=== PATIENT | female | born 1960 | race Caucasian/White ===

== ENCOUNTER 2025-01-21 12:51 | Inpatient (IN) | payer MEDICAID, OTHER ==
[~2025-01-21] VITALS: Ht 154.9 cm; Wt 76.4 kg
[~2025-01-21 12:51] MED LIST: CYCL-1 PO
--- NOTE | 2025-01-21 13:06 | ELECTROCARDIOGRAPH REPORT ---
[facility] Test Date: 2025-01-21 Test Time: 12:57:00 Pat Name: NORA HERNANDEZ Department: EMERGENCY ROOM Room: Gender: F Educational Therapy Teacher: ANTONINA : 1960 Requested By: ELLI DECKER Order Number: [id number] Reading MD: Measurements Intervals Hubbard Rate: 79 P: 44 KS: 144 QRS: 23 QRSD: 129 T: 85 QT: 398 QTc: 457 Interpretive Statements Sinus rhythm Left bundle branch block Please click the below link to view image of tracing.
--- NOTE | 2025-01-21 13:14 | Physician Documentation ---
History of Present Illness ~ Chief Complaint: Chest Pain Stated Complaint: CP SOB Time Seen by MD: 13:47 OK to notify your PCP?: No Source: patient, RN notes reviewed Mode of Arrival: POV Exam Limitations: no limitations HPI This is a 64-year-old female who presents to the emergency department reporting that she had onset of chest pain this morning, worse with breathing. She notes that this has happened before, but this is more severe than usual, and it usually goes away after a brief period of time, this has sustained. She denies nausea, vomiting, shortness of breath. She denies chills, fever, recent flu- like illness. 1415: Patient reports prior instances of pain were at least 15 years ago. At the time states pain went away on its own. Today pain is not resolving on its own and increases with deep breaths and inspiration. She denies history of cardiac workup such as stress test. She denies significant past medical history, but does not have a regular doctor. She does not smoke cigarettes. She denies known family history of cardiac disease. Medication Reconciliation Allergies: Coded Allergies: No Known Allergies (Unverified , 10/30/14) Scheduled Losartan Potassium (Losartan Potassium), 1 TAB PO DAILY Pantoprazole Sodium (Pantoprazole Sodium), 40 MG PO DAILY Miscellaneous Medications Home Med List (No Home Medications), (Reported) Discontinued Medications Amoxicillin (Amoxicillin), 2 CAP PO BID, (Reported) Cyclobenzaprine* (Cyclobenzaprine*), 1 TABLET PO Q8H PRN for muscle spasms Discontinued Reason: patient no longer taking Past Medical History Past Medical History: Chronic Back Pain Past Surgical History: hysterectomy Alcohol Use: Rarely Drug Use: none Lives with: Family Lives In: Home Occupation: employed Review of Systems All Other Systems at this time: Reviewed and Negative ROS As stated above in the HPI, otherwise all systems are reviewed and negative. Physical Exam Vital Signs: RN Vital Signs have been reviewed: Yes, Temperature: 98.1, Source: Temporal, Heart Rate: 78, Respiratory Rate: 15, BP: 144/94, Pulse Oximetry: 97, Weight: 76.360 Pulse Oximetry Reflects: adequate oxygenation Physical Exam General: Alert, no apparent distress. HEENT: PERRL, EOMI, no injection, moist mucous membranes. Neck: Full range of motion. Respiratory: Lungs clear, no respiratory distress. Chest: No accessory muscle use. Cardiovascular: Regular rate and rhythm, no murmurs. Gastrointestinal: Soft, nontender, nondistended. Bowels sounds present. Extremities: Normal range of motion, no deformity. Neurologic: Oriented x4. Psychiatric: Normal mood and affect. Skin: Normal color, warm and dry. No edema, no ecchymosis. Progress Progress Note 1347: Care assumed by Dr. Singleton, following MSE by CLAUDIA Killian. 1502: Hospitalist paged. 1510: Case discussed with CLAUDIA Weller, hospitalist, who agrees to evaluate for admission. Results/Orders Reviewed/noted all lab results: Yes Results/Orders Orders - ELLI SINGLETON MD Page Hospitalist (01/21/25 15:01) Fill Out Med Reconciliation (01/21/25 15:01) Completed Orders - ELLI SINGLETON MD Electrocardiogram (01/21/25 ) Aspirin 81mg Chew Tablet (Aspirin 81mg C (01/21/25 14:15) Vital Signs 01/21/25 01/21/25 01/21/25 13:08 13:44 13:55 Temp 98.1 Pulse 78 74 Resp 15 12 B/P (MAP) 144/94 154/91 (112) Pulse Ox 97 98 Laboratory Tests Test 01/21/25 13:04 White Blood Count 7.1 Red Blood Count 5.11 Hemoglobin 15.5 Hematocrit 45.5 H Mean Corpuscular Volume 89.1 Mean Corpuscular Hemoglobin 30.3 Mean Corpuscular Hemoglobin Concent 34.0 Red Cell Distribution Width 13.8 Platelet Count 286 Mean Platelet Volume 7.4 Neutrophils (%) (Auto) 55.2 Lymphocytes (%) (Auto) 34.2 Monocytes (%) (Auto) 8.5 Eosinophils (%) (Auto) 1.1 Basophils (%) (Auto) 1.0 Neutrophils # (Auto) 3.9 Lymphocytes # (Auto) 2.4 Monocytes # (Auto) 0.6 Eosinophils # (Auto) 0.1 Basophils # (Auto) 0.1 CBC Comment Sodium Level 140 Potassium Level 4.1 Chloride Level 105 Carbon Dioxide Level 25.6 Anion Gap 9 Blood Urea Nitrogen 21 H Creatinine 0.74 Estimated GFR/1.73 m2 80 BUN/Creatinine Ratio 28.4 H Glucose Level 94 Calcium Level 9.3 Troponin I High Sensitivity 5 Pro-B-Type Natriuretic Peptide 50 Albumin 4.0 Chemistry Comments EKG/XRAY/CT/US/VASC/MRI EKG : Additional Comment 1257: EKD interpreted by myself to show NSR at a rate of 79bpm. LBBB, No STEMI. normal axis. Chest X-Ray : Additional Comments CHEST RADIOGRAPH Indication: CP Technique: Single frontal view of the chest was obtained Comparison: None FINDINGS: Lines and Tubes: None Lungs: No focal consolidation. Hip pain is noted overlying the right upper lung zone which is most likely external to the patient. Pleura: No effusion. No pneumothorax. Cardiomediastinal contours: Unremarkable Bones: No acute osseous abnormality. Calcific tendinitis adjacent to the right humeral head. IMPRESSION: No acute cardiopulmonary disease. Reviewed by myself. (Dr. Singleton) Heart Score: Heart Score Response (Comments) Value History Highly Suspicious 2 EKG Repolarization Disturb 1 Age 45-64 1 Risk Factors No known risk factors 0 Troponin Normal limit 0 Total 4 Medical Decision Making Additional info obtained from: old records (last seen in 2014 for flank pain) Findings 64-year-old female with an episode of chest pain, the patient has not had any recent cardiac evaluations, given the fact that she is chest pain she has been recommended for further evaluation and admission to the hospital. I did review her chest x-ray and interpreted as a normal chest x-ray with normal-appearing lung stewart normal cardiac silhouette and normal bony structures. I have also reviewed her EKG has well and her electronic device monitor was a sinus rhythm. The patient's troponins are negative the patient is currently chest pain-free. The patient will be admitted to the hospitalist service case has been discussed with the hospitalist. Prior hospitalizations were reviewed. The patient's pulse oximetry was interpreted as normal and adequate. Departure Time of Disposition: 15:02 Disposition: 09 ADMITTED INPATIENT Admitted to Inpatient Unit: yes, to hospitalist Impression: Primary Impression: Chest pain Qualified Codes: R07.9 - Chest pain, unspecified Condition: Fair Prescriptions Pantoprazole Sodium (Pantoprazole Sodium) 40 Mg Tablet. 40 MG PO DAILY for 30 Days, #30 TAB.SR Prov: AMANDA WELLER INFORMATION SCIENTIST 01/22/25 Losartan Potassium (Losartan Potassium) 25 Mg Tablet 1 TAB PO DAILY for 30 Days, #30 TAB 0 Refills Prov: AMANDA WELLER INFORMATION SCIENTIST 01/22/25 Education Educated: Patient Educated regarding: diagnosis, treatment, need for follow up Signature Scribe Signature: Scribed for Elli Singleton MD by Adalberto Leo . 01/21/25 14:14 Attestation: The note accurately reflects work and decisions made by me.Elli Singleton MD 01/23/25 03:33 SAYDA KILLIAN NP Jan 21, 2025 13:14 ADALBERTO MCGRATH Jan 21, 2025 14:18 ELLI SINGLETON MD Jan 23, 2025 03:33
[2025-01-21 13:27] LABS: MEAN PLATELET VOLUME 7.4 FL (7.4-10.4); RED CELL DISTRIBUTION WIDTH 13.8 % (11.5-14.5)
[2025-01-21 13:46] LABS: CREATININE 0.74 MG/DL (0.40-0.90); PRO BRAIN NATRIURETIC PEPTIDE 50 PG/ML (0-125); TOTAL CARBON DIOXIDE 25.6 MMOL/L (24-32); eCRCL 59 ML/MIN; eGFR 80 ML/MIN
--- NOTE | 2025-01-21 14:04 | RADIOLOGY REPORT ---
CHEST RADIOGRAPH Indication: CP Technique: Single frontal view of the chest was obtained Comparison: None FINDINGS: Lines and Tubes: None Lungs: No focal consolidation. Hip pain is noted overlying the right upper lung zone which is most likely external to the patient. Pleura: No effusion. No pneumothorax. Cardiomediastinal contours: Unremarkable Bones: No acute osseous abnormality. Calcific tendinitis adjacent to the right humeral head. IMPRESSION: No acute cardiopulmonary disease.
[2025-01-21] MEDS ORDERED: HYDROcodone/acetaminophen 10/325mg tab PO PRN (15:20)
[2025-01-21] MEDS ORDERED: magnesium hydroxide 30ml (MOM) UD suspension PO PRN (15:20)
[2025-01-21] MEDS ORDERED: morphine 4 MG/ML inj SYRINge IV PRN ×2 (15:20)
[2025-01-21] MEDS ORDERED: potassium Cl 40MEQ/1/2NS 520ml 520 ML IV PRN (15:20)
[2025-01-21] MEDS ORDERED: magnesium sulf-water 2g/50mL 50 ML IV PRN (15:20)
[2025-01-21] MEDS ORDERED: HYDROcodone/acetaminophen 5mg/325mg tablet PO PRN (15:20)
[2025-01-21] MEDS ORDERED: mag hydrox/Alum hydrox/simeth 30ml oral suspension PO PRN (15:20)
[2025-01-21] MEDS ORDERED: ondansetron 4mg rapidly disintigrating tab PO PRN (15:20)
[2025-01-21] MEDS ORDERED: hydrALAZINE 20mg/ml inj. IV PRN (15:20)
[2025-01-21] MEDS ORDERED: ondansetron/PF 4mg/2ml inj IV PRN (15:20)
[2025-01-21] MEDS ORDERED: potassium Cl 20 mEq SR tablet PO PRN ×2 (15:20)
[2025-01-21] MEDS ORDERED: magnesium sulf-water 4G/100mL 100 ML IV PRN (15:20)
--- NOTE | 2025-01-21 15:42 | HISTORY AND PHYSICAL ---
History & Physical Providers to CC ~ History of Present Illness Reason for Admit\Complaint: r/o ACS History of Present Illness Yaneth Vidal is a 64-year-old female with no reported significant past medical history who came to the ED with chief complaints of acute onset nonradiating chest pain that worsens with breathing and exertion x 1 day. Patient reports experiencing similar symptoms 15 years ago which spontaneously resolved. Patient denies prior GERD, anxiety disorder, [place]/CAD, CVA, cardiac arrhythmia, DVT/PE, or GIB. Patient denies palpitations, shortness of breath, abdominal pain, n/v/d, dysuria, chills, fever, sweating, or recent illness. Patient is to be admitted for further workups and treatment. Allergies: Coded Allergies: No Known Allergies (Unverified , 10/30/14) Home Medications Home Medications Active Cyclobenzaprine* (Cyclobenzaprine HCl) 10 Mg Tablet 1 Tablet PO Q8H PRN Past Medical History Past Medical History Denies Past Surgical History Surgical History Comment Hysterectomy Left total hip replacement Past Social History Social History Comment Alcohol: Denies Tobacco: Denies, never Illicit drug use: Denies Living situation: Lives at home with family ROS ROS Other than positives in HPI, all 14 review of systems are negative Exam Vitals: Vital Signs Date Time Temp Pulse Resp B/P (MAP) Pulse Ox O2 Delivery O2 Flow Rate FiO2 01/21/25 13:55 74 12 154/91 (112) 98 01/21/25 13:08 98.1 General: A&Ox 3, NAD HEENT: Normocephalic, PERRLA Neck: Supple, trachea midline, no JVD Chest: Clear to auscultation bilaterally Cardiovascular: RRR, S1&S2 Abdomen: Soft and nontender Extremities: No cyanosis/clubbing/or edema Central Nervous System: CN II-XII intact, no focal deficits Musculoskeletal: No paraspinal muscle tenderness, no muscle spasm Skin: Warm and intact Diagnostic Data Last Recorded Lab Results: 01/21/25 1304 01/21/25 1304 Additional Plan Assessment & Plan ACS- to rule out -trop series neg, CXR neg, EKG sinus at 79bpm, no ST elevation/depression, LBBB, TTE overall systolic function with LVEF of 65% RVSP 31mmHg, no significant VHD -aspirin, statin, prn nitroglycerin, PPI, HEART score 4, follow Lexiscan, A1c, lipid panel DVT/VTE Prophylaxis: heparin Code Status: Full Code I spent a total of 35 minutes discussing Advanced Care Planning measures with the patient. Advance care planning: Discussed with patient the importance of advance care planning in case of emergent situation. We discussed various resuscitative measures/ ACP with the patient at the time of admission. Patient voiced understanding and patient has decided on a full code status. Date of Service: Jan 21, 2025 Billing Provider: AMANDA GRAF Common Visit Codes: 55544-KBCTGTU INP/OBS CARE (HIGH) Secondary Visit Codes: 70022-HKGQVNGW CARE PLAN 30 MINUTES AMANDA GRAF Jan 21, 2025 15:42
[2025-01-21] MEDS ORDERED: aminophylline 250mg/10ml inj. IV PRN (15:50)
[2025-01-21] MEDS ORDERED: metoprolol tartrate 1mg/ml inj IV PRN (15:50)
[2025-01-21] MEDS: pantoprazole 40mg Tablet.DR PO ONE (16:33)
[2025-01-21] MEDS: normal saline 1000ml 1,000 ML IV SCH (17:28)
--- NOTE | 2025-01-21 18:17 | CARDIOLOGY REPORT ---
APPROVED REPORT EXAM: Comprehensive 2D, Doppler, and color-flow Echocardiogram. Patient Location: ER RM 9 Blood Pressure: 154/91 mmHg Heart Rate: 68 bpm Indications Chest Pain Shortness of Breath NO [employer] NO Previous ECHO 2D Dimensions LA Diam 2.4 cm IVSd 1.0 (0.7-1.1cm) LVDd 3.9 cm PWd 0.8 (0.7-1.1cm) IVSs 1.0 (0.8-1.2cm) LVDs 2.6 (2.5-4.0cm) PWs 1.4 (0.8-1.2cm) LVOT Diameter 1.86 (1.8-2.4cm) LVEF(%) 62.2 (>50%) Ao Asc Diam. 3.17 cm IVC 16.03 mm FS (%) 33.0 % SV 40.2 ml CO 2.4 L/min M-Mode Dimensions Left Atrium(MM) 2.60 (2.5-4.0cm) Aortic Root 2.53 (2.2-3.7cm) Aortic Cusp Exc 1.90 (1.5-2.0cm) MV EPSS 0.5 (<0.5cm) Aortic Valve AoV Peak Eran. 111.0 cm/s AoV VTI 21.5 cm AO Peak GR. 4.9 mmHg AO Mean GR. 3 mmHg LVOT VTI 16.21 cm LVOT Peak Eran. 75.2 cm/s JASON(VTI)/BSA 2.04 cm2/m2 JASON (VTI) 2.04 cm2 Mitral Valve MV E Velocity 65.3 cm/s MV Peak Gr. 2 mmHg MV DECEL TIME 240 ms MV A Velocity 81.2 cm/s MV PHT 88 ms E/A Ratio 0.8 MVA (PHT) 2.50 cm2 MV VMax 76.6 cm/s TDI Lateral E' P. V 9.59 cm/s Medial E' P. V 8.00 cm/s E/Lateral E' 6.8 E/Medial E' 8.2 Pulmonary Valve PAEDP 12.12 mmHg Tricuspid Valve TR P. Velocity 231 cm/s RAP ESTIMATE 10 mmHg TR Peak Gr. 21 mmHg RVSP 31 mmHg LEFT VENTRICLE Normal LV size and wall thickness. Overall systolic function is normal. LVEF is 65%. RIGHT VENTRICLE Right ventricle is mildly dilated with normal contractility. Elevated right heart pressures with an RVSP of 31 mmHg. ATRIA The left atrium size is normal. AORTIC VALVE Trileaflet AV appears mildly sclerotic without stenosis. No insufficiency. MITRAL VALVE Mitral valve leaflets are mildly thickened with mild annular calcification. No stenosis. Trace regurgitation. TRICUSPID VALVE The tricuspid valve is normal in structure with mild regurgitation. PULMONIC VALVE Pulmonic valve is grossly normal in structure with physiologic insufficiency. GREAT VESSELS The aortic root is normal in size. The ascending aorta is normal in size. The IVC is normal in size and collapses >50% with inspiration. PERICARDIUM Normal pericardium. No effusion. Other Information Study Quality: Adequate Conclusion Normal LV size and wall thickness. Overall systolic function is normal. LVEF is 65%. Right ventricle is mildly dilated with normal contractility. Elevated right heart pressures with an RVSP of 31 mmHg. The left atrium size is normal. Trileaflet AV appears mildly sclerotic without stenosis. No insufficiency. Mitral valve leaflets are mildly thickened with mild annular calcification. No stenosis. Trace regurgitation. The tricuspid valve is normal in structure with mild regurgitation. Normal pericardium. No effusion.
[2025-01-21] MEDS ORDERED: NO HOME MEDS (18:27)
[2025-01-21] MEDS: K and/or MAG REPLACEMENT MC SCH (19:54)
[2025-01-21] MEDS: docusate sod 100mg capsule PO SCH (20:00)
[2025-01-21] MEDS: heparin, porcine 5000 units/ml vial SQ SCH (20:00)
[2025-01-21 22:15] VITALS: BP 143/86; PULSE 71; RESP 10; O2SAT 98
[2025-01-22] VITALS (14 sets, daily range): BP systolic 121–155; BP diastolic 61–89; PULSE 62–113; RESP 14–19; TEMP 97.1–97.9; O2SAT 96–100
[2025-01-22 06:03] LABS: MEAN PLATELET VOLUME 7.6 FL (7.4-10.4); RED CELL DISTRIBUTION WIDTH 13.5 % (11.5-14.5)
[2025-01-22 06:19] LABS: CREATININE 0.66 MG/DL (0.40-0.90); TOTAL CARBON DIOXIDE 24.3 MMOL/L (24-32); eCRCL 67 ML/MIN; eGFR > 90 ML/MIN
[2025-01-22] MEDS: pantoprazole 40mg Tablet.DR PO SCH (07:22)
[2025-01-22 07:32] LABS: CHOL/HDL RATIO 4.1 (0.00-4.99); LDL CHOLESTEROL 114 MG/DL (50-100)
[2025-01-22] MEDS: regadenoson 0.4mg/5ml syringe IV PRN (09:54)
[2025-01-22] MEDS ORDERED: AMOX500C4 PO (13:15)
--- NOTE | 2025-01-22 14:12 | RADIOLOGY REPORT ---
Reason for study/Clinical History: angina, HEART4 Comparison Study: None Myocardial Perfusion Study with SPECT Technique: The patient received an intravenous injection of 9.3 mCi of technetium-99m Sestamibi while at rest. After a short delay, SPECT tomographic images of the heart were obtained. The patient then went to the stress lab where they received an intravenous Lexiscan utilizing standard protocol. 32.4 mCi of technetium-99m Sestamibi was injected intravenously immediately after the start of the infusion. Gated SPECT tomographic images of the heart were acquired and processed. Findings: Rotating planar images show no significant attenuation artifact. The left ventricular size is within normal limits. Stress tomographic images demonstrate normal perfusion. Resting tomographic images demonstrate a similar pattern. Gated portion of the study shows normal wall motion and myocardial thickening. The left ventricular ejection fraction is 69 %. (normal greater than 50%) Impression: Normal left ventricular size, wall motion, and function, without evidence of infarction or of myocardium at ischemic risk. The left ventricular ejection fraction is 69 %.
[2025-01-22] MEDS ORDERED: LOSA25TA41 PO (15:35)
[2025-01-22] MEDS ORDERED: PANT40TA54 PO (16:27)
--- NOTE | 2025-01-22 16:31 | DISCHARGE SUMMARY ---
Discharge Summary Providers to CC ~ Discharge Summary Admission Diagnosis: r/o ACS Hospital Course DATE OF ADMISSION: 01/21/25 DATE OF DISCHARGE: 01/22/25 Discharge Diagnosis\Comment: ACS- ruled out Atypical chest pain likely 2/2 GERD Hypertension Operations\Procedures: None Consultants: None Complications: None Condition on DC: Stable New Medications: Losartan Potassium (Losartan Potassium) 25 Mg Tablet 1 TAB PO DAILY for 30 Days, #30 TAB 0 Refills Pantoprazole Sodium (Pantoprazole Sodium) 40 Mg Tablet.dr 40 MG PO DAILY for 30 Days, #30 TAB.SR Continued Medications: Home Med List (No Home Medications) Each Discontinued Medications: Amoxicillin (Amoxicillin) 500 Mg Capsule 2 CAP PO BID Discharge Summary: History of Present Illness Yaneth Vidal is a 64-year-old female with no reported significant past medical history who came to the ED with chief complaints of acute onset nonradiating chest pain that worsens with breathing and exertion x 1 day. Patient reports experiencing similar symptoms 15 years ago which spontaneously resolved. Patient denies prior GERD, anxiety disorder, [place]/CAD, CVA, cardiac arrhythmia, DVT/PE, or GIB. Patient denies palpitations, shortness of breath, abdominal pain, n/v/d, dysuria, chills, fever, sweating, or recent illness. Patient is to be admitted for further workups and treatment. Hospital Course Diagnostic findings including troponin series, chest x-ray, EKG were unremarkable. Given HEART score of 4, Lexiscan was pursued. Lexiscan resulted negative. TTE revealed normal overall systolic function with LVEF of 65%, RVSP 30 mmHg, no significant valvular heart disease. The patient was treated with PPI. On a following day, patient no longer reports chest pain. Patient did not experience further complications throughout the entire hospital stay and remained clinically and hemodynamically stable. Patient recovered earlier than expected and verbalizes readiness for discharge. Patient was seen and examined on the day of discharge. On day of discharge, vss and labs unremarkable. All labs, diagnostic workups, discharge plan discussed with patient in details during visit before discharge. All questions and concerns answered to the best of my professional knowledge. Patient is to be discharged to home to self and to follow-up with PCP within 2 weeks. Physical Exam General: Generalized weakness, A&Ox 3, NAD HEENT: Normocephalic, PERRLA Neck: Supple, trachea midline, no JVD Chest: Clear to auscultation bilaterally Cardiovascular: RRR, S1&S2 GI: Soft and nontender Extremities: No cyanosis/clubbing/or edema DRIVEWAY SEALER: CN II-XII intact, no focal deficits Musculoskeletal: No paraspinal muscle tenderness, no muscle spasm Skin: Warm and intact *Problems/Diagnosis: (1) Chest pain Status: Acute Total Time Spent on D/C: > 30 Minutes Date of Service: Jan 22, 2025 Billing Provider: AMANDA GRAF Common Visit Codes: 66023-LCG/OBS DISCH DAY >30min Problem Qualifiers (1) Chest pain: Qualified Codes: R07.9 - Chest pain, unspecified AMANDA GRAF Jan 22, 2025 16:30
== END 2025-01-22 17:30 | disposition home or self-care (01) | DRG 392 ==
LOC: ER 12:51 → ED HOLD 15:23 → PCU 3S 22:00
PROVIDERS: ADMIT Nurse Practitioner Family; ATTEND Nurse Practitioner Family
PROC: 4A02XM4 Measurement of Cardiac Total Activity, External Approach (ICD-10-PCS; principal; 2025-01-22)
PROC: 3E033HZ Introduction of Radioactive Substance into Peripheral Vein, Percutaneous Approach (ICD-10-PCS; 2025-01-22)
DX: K21.9 Gastro-esophageal reflux disease without esophagitis (principal); I10 Essential (primary) hypertension; G89.29 Other chronic pain; Z96.642 Presence of left artificial hip joint; Z90.710 Acquired absence of both cervix and uterus; Z79.899 Other long term (current) drug therapy
CPT/HCPCS: 36415; 71045; 78452; 80048; 80053; 80061; 83036; 83735; 83880; 84484; 85025; 87081; 93005; 93017; 93306; 99285; A9500; G0378; J2785; J7030